=== PATIENT | female | born 1970 | race Caucasian/White ===

== ENCOUNTER 2016-06-28 21:52 | Emergency (ER) | payer MEDICAID ==
[2016-06-28 22:46] VITALS: BP 155/96; PULSE 77; TEMP 98; BMI 33.7
[2016-06-29] MEDS ORDERED: MAGIC MOUTHWASH 180 ML ORAL SUSP PO PRN (00:03)
--- NOTE | 2016-06-29 00:05 | EDPRACDOC ---
- General Information Chief Complaint: Sore Throat Stated Complaint: THROAT & MOUTH PAIN Time Seen by Provider: 06/28/16 23:57 Information Source: Patient Home Medications: Home Medications Amoxicillin Trihydrate [Amoxicillin] 500 mg PO TID #21 tab 06/29/16 Allergies/Adverse Reactions: Allergies Allergy/AdvReac Type Severity Reaction Status Date / Time ciprofloxacin Allergy Unknown Verified 06/28/16 22:46 hydrocodone Allergy Itching Verified 06/28/16 22:46 - History of Present Illness Onset: 3-4 DAYS HPI: Pt c/o sores to mouth and gums x 3-4 days after completing Zithromax. Denies fever, earache, congestion, cough, sob, rash to exterior skin Sore Throat Symptoms: Reports: Pain White Spots Location: Denies: Lips, Tongue, Buccal Membrane, Gingiva, Palate, Pharynx, Other Recent: Reports: Antibiotic Use Relevant History of: Reports: None Pain Severity: Reports: Mild, Moderate Urinary Output: Normal Oral Intake: Decreased Associated Signs and Symptoms: Reports: None ED Past Medical History - History Reviewed Yes Nurses notes reviewed and agree except as marked - Patient Medical History Psychological History: Denies: Depression - Social Medical History Smoking Status: Heavy tobacco smoker (5 or more cigarettes/day or daily pipe/ cigar) ETOH: None Substance Abuse: None EDM Review of Systems - Review of Systems Constitutional: No Symptoms Reported. negative: Fever, Chills, Weakness, Fatigue, Loss of Appetite Ears: No Symptoms Reported. negative: Pain, Hearing Loss, Drainage, Ear Pulling Throat: Pain Nose: No Symptoms Reported. negative: Congestion, Bleeding, Discharge, Injection, Swelling, Deformity, Ecchymosis, Tender, Abrasion, Laceration Mouth: Erythema, Other (ulcers) Respiratory: No Symptoms Reported. negative: Cough, Brassy Cough, Barky Cough, Shortness of Breath, Wheezing, Hemoptysis Cardiovascular: No Symptoms Reported. negative: Chest Pain, Palpitations, Syncope, Edema, Orthopnea, PND, Skin Mottling, Cyanosis Gastrointestinal: No Symptoms Reported. negative: Pain, Constipation, Nausea, Vomiting, Diarrhea, Melena, Formula Intolerance Neurological: No Symptoms Reported. negative: Headache, Dizziness, Seizure, Numbness, Weakness, Speech Difficulty, Gait Difficulty Musculoskeletal: No Symptoms Reported. negative: Neck, Chestwall, Ribs, Back, Shoulder, Arm, Elbow, Forearm, Wrist, Hand, Pelvis, Hip, Femur, Knee, Leg, Ankle , Foot Integumentary: Rash Allergic/Immunologic: No Symptoms Reported. negative: Hives, Itching Hematologic: No Symptoms Reported. negative: Lymphadenopathy, Easy Bruising, Easy Bleeding Psychiatric: No Symptoms Reported. negative: Anxiety, Depression, Hallucinations, Insomnia, Suicidal - Physical Exam Constitutional: No apparent distress, Alert Oriented to: Time, Person, Place Last recorded Vital Signs: Last Vital Signs Temp 98.0 F 06/28/16 22:42 Pulse 77 06/28/16 22:42 Resp 20 06/28/16 22:42 BP 155/96 06/28/16 22:42 Pulse Ox 96 06/28/16 22:42 Oxygen Pulse Oxygen Saturation 96 O2 Device Room Air Oxygen Flow Rate Fraction of Inspired Oxygen ( FIO2) - HEENT Head: Normal ( normocephalic) Eye Exam: Normal (PERRL, EOMI, Sclera white) Oropharynx: Red, Other (ulcers) Tympanic Membrane: Normal ENT EAC: Normal TMJ: Normal Nose: No Symptoms Reported (septum midline) Neck: Normal (FROM, trachea at midline) - Respiratory/Cardiovascular Respiratory: Normal - CTA (BBS clear to auscultation without adventitious sounds ) Cardiovascular: Normal (RRR without murmur, gallop or rub) - Integumentary Skin: Normal, Warm, Dry Lymphatics: Normal (no adenopathy) - Neurologic Memory Impaired: Normal Motor Function: Normal (Normal tone, Pulses 2+ No cyanosis or edema, FROM) Mood Description: Normal Perception: Normal - Differential Diagnosis Other (viral [place]), Thrush, URI - Results Microbiology 06/28/16 22:47 Group A Streptococcus Rapid Screen - Final Throat - Rapid Strep NEGATIVE ("NORMAL" value = "NEGATIVE".) - Departure Disposition: Home Condition: Good Final Diagnosis: Mouth ulceration, Acute pharyngitis Instructions: Canker Sores (ED), Pharyngitis (ED) Education/Counseling Given To: Patient Education/Counseling Given Regarding: Diagnosis, Treatment, Follow Up Referrals: None,No Provider [Primary Care Provider] - One Week Vamsi Rojas MD [Staff Physician] - One Week Prescriptions: Amoxicillin Trihydrate [Amoxicillin] 500 mg PO TID #21 tab Additional Instructions: Magic mouthwash 5ml po swish and spit every 6 hours.
[2016-06-29] MEDS ORDERED: MAGIC MOUTHWASH 180 ML ORAL SUSP PO SCH (00:33)
== END 2016-06-29 00:46 | disposition home or self-care (01) ==
LOC: ED 21:52
DX: J02.9 Acute pharyngitis, unspecified (principal); K12.1 Other forms of stomatitis
CPT/HCPCS: 87880; 99283; J3490